=== PATIENT | female | born 1940 | race Caucasian/White ===

== ENCOUNTER → 2016-09-04 | Outpatient (CLI) | payer MEDICARE, BC ==
[~2016-09-04] MED LIST: ASPIRIN 81M81 MG/TA2 PO; BETAPACE 80MG80 MG PO; CARDIZEM CD 12120 MG PO; COUMADIN 5MG5 MG/TAB PO; LASIX 20MG TABL20 MG PO; LOVENOX 8080 MG/0.8 SQ; TYLENOL 325MG325 MG PO
== END ==
LOC: MC.RAD 08:36
DX: Z12.31 Encounter for screening mammogram for malignant neoplasm of breast (principal)

== ENCOUNTER 2017-10-25 08:44 | Emergency (ER) | payer MEDICARE, BC ==
[~2017-10-25] VITALS: Ht 160 cm; Wt 65.9 kg
[~2017-10-25 08:44] MED LIST changes: +BETAPACE 120MG120 MG PO; +FOSAMAX 70MG TA70 MG PO; +ZESTRIL 5MG5 MG PO
[2017-10-25 08:49] VITALS: TEMP 97.3
[2017-10-25 09:34] LABS: BASO # 0.1 (0.0-0.2); BASO % 0.7 % (0.0-2.0); EOS # 0.5 (0.0-0.7); EOS % 6.8 % (0-4.0); GRAN # 4.3 (1.4-6.5); GRAN % 63.2 % (42.2-75.2); HEMATOCRIT 43.2 % (37.0-47.0); HEMOGLOBIN 14.2 g/dl (12.5-16.0); LYMPH # 1.6 (1.2-3.4); LYMPH % 22.9 % (20.0-51.0); MEAN CELL VOLUME 88 fl (80.0-100.0); MEAN CORPUSCULAR HEMOGLOBIN 29 pg (27.0-31.0); MEAN CORPUSCULAR HGB CONC 33 g/dl (33.0-37.0); MEAN PLATELET VOLUME 10.4 fl (7.4-10.4); MONO # 0.4 (0.1-0.6); MONO % 6.3 % (1.7-9.3); PLATELET COUNT 194 K/mm3 (130-400); REDCELL DISTRIBUTION WIDTH-CV 14.3 % (11.5-14.5)
[2017-10-25 09:44] LABS: INR 4.3 (0.8-3.0)
[2017-10-25 09:45] LABS: ALANINE AMINOTRANSFERASE 35 U/L (9-52); ALBUMIN 4.1 gm/dL (3.5-5.0); ALKALINE PHOSPHATASE 69 U/L (50-136); ANION GAP 12 mmol/L (7-16); AST,SGOT 28 U/L (15-37); BILIRUBIN,TOTAL 0.5 mg/dL (0.0-1.0); BLOOD UREA NITROGEN 14 mg/dL (7-17); CALCIUM 9.3 mg/dL (8.4-10.2); CARBON DIOXIDE 26 mmol/L (22-30); CHLORIDE 102 mmol/L (98-107); CREATININE, serum 0.72 mg/dL (0.52-1.25); GLUCOSE 111 mg/dL (74-106); POTASSIUM 3.6 mmol/L (3.4-5.0); SODIUM 140 mmol/L (137-145); TOTAL PROTEIN 7.7 gm/dL (6.4-8.2)
[2017-10-25 09:46] LABS: PROTHROMBIN TIME 48.7 SECONDS (9.7-12.8)
[2017-10-25] MEDS ORDERED: COUMADIN 2MG2 MG/TAB PO (09:48)
[2017-10-25 10:01] LABS: TROPONIN-I < 0.012 ng/mL (0.000-0.034)
[2017-10-25] MEDS ORDERED: COZAAR 25MG25 MG/TAB PO (11:19)
[2017-10-25] MEDS ORDERED: BETAPACE 120MG120 MG PO (11:59)
[2017-10-25 13:06] VITALS: BP 96/58; PULSE 60
== END 2017-10-25 13:13 | disposition other institution (70) ==
LOC: COL.ER 08:44
PROVIDERS: Emergency Medicine
DX: I48.92 Unspecified atrial flutter (principal); R00.0 Tachycardia, unspecified; Z79.82 Long term (current) use of aspirin; Z79.01 Long term (current) use of anticoagulants
CPT/HCPCS: J0153; J2704; J7030

== ENCOUNTER → 2017-10-27 | Outpatient (CLI) | payer MEDICARE, BC ==
[~2017-10-27] MED LIST changes: +COUMADIN 2MG2 MG/TAB PO; +COZAAR 25MG25 MG/TAB PO
== END ==
LOC: MC.RAD 09:34
DX: Z12.31 Encounter for screening mammogram for malignant neoplasm of breast (principal)

== ENCOUNTER 2018-04-14 06:48 | Day surgery (SDC) | payer MEDICARE, BC ==
[~2018-04-14] VITALS: Ht 160.1 cm; Wt 67.3 kg
[2018-04-14 07:25] LABS: HEMATOCRIT 40.4 % (37.0-47.0); HEMOGLOBIN 13.6 g/dl (12.5-16.0); MEAN CELL VOLUME 89 fl (80.0-100.0); MEAN CORPUSCULAR HEMOGLOBIN 30 pg (27.0-31.0); MEAN CORPUSCULAR HGB CONC 34 g/dl (33.0-37.0); MEAN PLATELET VOLUME 9.7 fl (7.4-10.4); PLATELET COUNT 175 K/mm3 (130-400); RED BLOOD COUNT 4.52 M/mm3 (4.10-5.30); REDCELL DISTRIBUTION WIDTH-CV 13.7 % (11.5-14.5)
[2018-04-14 07:30] LABS: INR 2.2 (0.8-3.0); PROTHROMBIN TIME 25.1 SECONDS (9.7-12.8)
[2018-04-14 07:36] LABS: CALCIUM 9.2 mg/dL (8.4-10.2); CREATININE, serum 0.69 mg/dL (0.52-1.25); POTASSIUM 3.8 mmol/L (3.4-5.0)
[2018-04-14 08:01] VITALS: BP 138/85; PULSE 106; TEMP 97.5
[2018-04-14] MEDS ORDERED: TOPROL XL 25MG25 MG PO ×2 (08:12→09:32)
[2018-04-14 09:40] VITALS: BP 99/67; PULSE 80
[2018-04-14 09:50] VITALS: BP 98/66; PULSE 84
[2018-04-14 10:00] VITALS: BP 101/67; PULSE 71
[2018-04-14 10:15] VITALS: BP 92/57; PULSE 69
== END 2018-04-14 10:40 | disposition home or self-care (01) ==
LOC: COL.CAR 06:48
PROVIDERS: Internal Medicine Cardiovascular Disease
DX: I48.0 Paroxysmal atrial fibrillation (principal); I48.92 Unspecified atrial flutter; I50.32 Chronic diastolic (congestive) heart failure; Z95.2 Presence of prosthetic heart valve; Z88.5 Allergy status to narcotic agent; Z88.8 Allergy status to other drugs, medicaments and biological substances; Z90.710 Acquired absence of both cervix and uterus; Z79.01 Long term (current) use of anticoagulants; Z87.11 Personal history of peptic ulcer disease
CPT/HCPCS: J2405; J2704; J7030

== ENCOUNTER 2018-06-01 08:45 | Inpatient (IN) | payer MEDICARE, BC ==
[2018-06-01] VITALS (476 sets, daily range): BP systolic 100–124; BP diastolic 7–87; PULSE 98–110; TEMP 97.9–98.5; O2SAT 82–100
[~2018-06-01] VITALS: Ht 160 cm; Wt 67.0 kg
[~2018-06-01 08:45] MED LIST changes: +TOPROL XL 25MG25 MG PO
--- NOTE | 2018-06-01 09:05 | NUR ---
Patient arrives to ICU room 2 and is attached to monitors. INT IV is started to LW and labs drawn as ordered. RT is called to complete admission EKG. Assessment, vitals and admission as charted. Care assumed.
[2018-06-01 09:32] LABS: CALCIUM 9.5 mg/dL (8.4-10.2); CREATININE, serum 0.77 mg/dL (0.52-1.25); POTASSIUM 4.1 mmol/L (3.4-5.0)
--- NOTE | 2018-06-01 10:22 | NUR ---
First dose of tikosyn administered now. RT notified of need for EKG in 2 hours time.
--- NOTE | 2018-06-01 13:30 | NUR ---
Dr. Rose rounds at this time. Orders as entered CPOE.
[2018-06-01] MEDS ORDERED: LANOXIN 0.25M0.25 MG PO (14:24)
[2018-06-01] MEDS ORDERED: TOPROL XL 25MG25 MG PO (14:26)
--- NOTE | 2018-06-01 14:27 | NUR ---
Plan to return home. SW met with patient, daughter and in room. Patient reports that she is independent in her daily activities. Patient reports that she does not use any DME or O2. Patient reports Dr. Fisher as PCP and the use of [facility] for RX. EMR and DPOA is Ayaka Lindo and Eric Altamirano . Made copies, placed copies in chart and gave family copy. Denies any care concerns. SW will continue to follow if any needs arise. Nothing Follows. .
--- NOTE | 2018-06-01 20:00 | NUR ---
Assessment completed and charted at this time, please see documentation for details. patient resting in bed, no new issues to report at this time.
[2018-06-02] VITALS (469 sets, daily range): BP systolic 100–129; BP diastolic 60–85; PULSE 68–103; TEMP 97.5–98.9; O2SAT 82–100
[2018-06-02 05:49] LABS: CALCIUM 9.1 mg/dL (8.4-10.2); CREATININE, serum 0.7 mg/dL (0.52-1.25); POTASSIUM 4.1 mmol/L (3.4-5.0)
--- NOTE | 2018-06-02 08:41 | NUR ---
Initial visit; Patient doing well, states she is on a prescription trial and thanked Calibration Engineer for looking in on her and wishing her well.
[2018-06-02 09:59] LABS: INR 4.1 (0.8-3.0)
[2018-06-02 10:02] LABS: PROTHROMBIN TIME 47.1 SECONDS (9.7-12.8)
[2018-06-02 10:24] LABS: INR 4.2 (0.8-3.0)
[2018-06-02 10:26] LABS: PROTHROMBIN TIME 47.8 SECONDS (9.7-12.8)
--- NOTE | 2018-06-02 19:19 | NUR ---
Patient up to shower independently, tolerated well. Back to recliner, daughter to bring her supper. Denies any needs. Shift report given to oncoming nurse.
--- NOTE | 2018-06-02 20:30 | NUR ---
Initial shift assessment done- denies pain- denies chest pain/SOB, family in room- visiting with patient. No requests
[2018-06-03 03:57] VITALS: BP 125/68; PULSE 101; TEMP 98
--- NOTE | 2018-06-03 05:38 | NUR ---
Quiet night- no requests, NPO for am cardioversion. Did have a 3 sec run of afib RVR during the night--immediately back to controlled rate
[2018-06-03 06:38] LABS: INR 3.5 (0.8-3.0); PROTHROMBIN TIME 39.7 SECONDS (9.7-12.8)
[2018-06-03 06:49] LABS: CALCIUM 9.3 mg/dL (8.4-10.2); CREATININE, serum 0.77 mg/dL (0.52-1.25); POTASSIUM 4.3 mmol/L (3.4-5.0)
[2018-06-03 07:48] VITALS: BP 123/74; PULSE 101; TEMP 98.1
[2018-06-03 08:03] LABS: BASO # 0.1 (0.0-0.2); BASO % 0.7 % (0.0-2.0); EOS # 0.5 (0.0-0.7); EOS % 7.1 % (0-4.0); GRAN % 58.5 % (42.2-75.2); HEMATOCRIT 39.3 % (37.0-47.0); HEMOGLOBIN 12.9 g/dl (12.5-16.0); LYMPH # 1.7 (1.2-3.4); LYMPH % 24.1 % (20.0-51.0); MEAN CELL VOLUME 90 fl (80.0-100.0); MEAN CORPUSCULAR HEMOGLOBIN 30 pg (27.0-31.0); MEAN CORPUSCULAR HGB CONC 33 g/dl (33.0-37.0); MEAN PLATELET VOLUME 10.3 fl (7.4-10.4); MONO # 0.6 (0.1-0.6); PLATELET COUNT 190 K/mm3 (130-400); RED BLOOD COUNT 4.38 M/mm3 (4.10-5.30); REDCELL DISTRIBUTION WIDTH-CV 13.1 % (11.5-14.5)
--- NOTE | 2018-06-03 08:10 | NUR ---
Pt is A+Ox3, pleasant, denies palpitations and chest pain but c/o slight SOB with exertion. Physical assessment complete. Pt on RA, INt to LFA s complications at site. pt prepared for cardioversion. EKG ordered post tykosin. Bed low, family near, call blake mikki lara
[2018-06-03 10:17] VITALS: BP 120/59; PULSE 86
[2018-06-03] MEDS ORDERED: TIKOSYN0.25 MG PO (10:20)
--- NOTE | 2018-06-03 11:00 | NUR ---
Pt returned to room, states she feels better and SOB improved, no pain. Vitals stable. Continuing to monitor
--- NOTE | 2018-06-03 12:03 | NUR ---
tHIS rn reviewed discharge instructions with pt and family, all questions answered, INT removed with tp intact and site free of complicatons. No further needs, pt is eating sandwithc then will leave
--- NOTE | 2018-06-03 12:15 | NUR ---
[facility]
== END 2018-06-03 12:00 | disposition home or self-care (01) | DRG 309 ==
LOC: ICU 08:45 → MEDICAL 06-02 17:36
PROVIDERS: ADMIT Internal Medicine Cardiovascular Disease
PROC: 5A2204Z Restoration of Cardiac Rhythm, Single (ICD-10-PCS; principal; 2018-06-03)
DX: I48.92 Unspecified atrial flutter (principal); I50.32 Chronic diastolic (congestive) heart failure; I48.0 Paroxysmal atrial fibrillation; Z95.2 Presence of prosthetic heart valve
CPT/HCPCS: G9654; J2405; J2704

== ENCOUNTER 2018-07-21 08:51 | Inpatient (IN) | payer MEDICARE, BC ==
[2018-07-21] VITALS (248 sets, daily range): BP systolic 91–125; BP diastolic 55–69; PULSE 51–84; TEMP 97.9–98.3; O2SAT 84–100
[~2018-07-21] VITALS: Ht 160 cm; Wt 65.9 kg
[~2018-07-21 08:51] MED LIST changes: +LANOXIN 0.25M0.25 MG PO; +TIKOSYN0.25 MG PO
[2018-07-21 09:18] LABS: BASO # 0.1 (0.0-0.2); BASO % 0.6 % (0.0-2.0); EOS # 0.3 (0.0-0.7); EOS % 3.4 % (0-4.0); GRAN # 4.9 (1.4-6.5); GRAN % 60.1 % (42.2-75.2); HEMATOCRIT 43.1 % (37.0-47.0); HEMOGLOBIN 14.2 g/dl (12.5-16.0); LYMPH # 2.4 (1.2-3.4); LYMPH % 28.9 % (20.0-51.0); MEAN CELL VOLUME 89 fl (80.0-100.0); MEAN CORPUSCULAR HEMOGLOBIN 30 pg (27.0-31.0); MEAN CORPUSCULAR HGB CONC 33 g/dl (33.0-37.0); MEAN PLATELET VOLUME 10.5 fl (7.4-10.4); MONO # 0.6 (0.1-0.6); MONO % 6.8 % (1.7-9.3); PLATELET COUNT 222 K/mm3 (130-400); RED BLOOD COUNT 4.82 M/mm3 (4.10-5.30); REDCELL DISTRIBUTION WIDTH-CV 13.2 % (11.5-14.5)
[2018-07-21 09:20] LABS: INR 3.8 (0.8-3.0); PROTHROMBIN TIME 43.5 SECONDS (9.7-12.8)
[2018-07-21 09:23] LABS: PARTIAL THROMBOPLASTIN TIME 55.3 SECONDS (26.0-37.0)
[2018-07-21 09:24] LABS: ALANINE AMINOTRANSFERASE 17 U/L (9-52); ALBUMIN 4.4 gm/dL (3.5-5.0); ALKALINE PHOSPHATASE 70 U/L (50-136); ANION GAP 10 mmol/L (7-16); AST,SGOT 28 U/L (15-37); BILIRUBIN,TOTAL 0.5 mg/dL (0.0-1.0); BLOOD UREA NITROGEN 19 mg/dL (7-17); CALCIUM 9.8 mg/dL (8.4-10.2); CARBON DIOXIDE 27 mmol/L (22-30); CHLORIDE 103 mmol/L (98-107); CREATININE, serum 0.72 mg/dL (0.52-1.25); GLUCOSE 91 mg/dL (74-106); SODIUM 139 mmol/L (137-145)
[2018-07-21 09:39] LABS: TROPONIN-I < 0.012 ng/mL (0.000-0.035)
--- NOTE | 2018-07-21 15:28 | NUR ---
Received report from SUDHA Perez.
--- NOTE | 2018-07-21 15:30 | NUR ---
RECEIVED REPORT FROM SUDHA ADAMSON.
--- NOTE | 2018-07-21 15:45 | NUR ---
PATIENT TRANSFERED FROM ER TO ICU. ASSESSED PATIENT AND GOT PATIENT SETTLED. PATIENT IS RESTING IN ROOM WITH FAMILY. WILL CONTINUE TO MONITOR.
--- NOTE | 2018-07-21 17:53 | NUR ---
PATIENTS HEART RATE REMAINS ANYWHERE BETWEEN 40-90'S. PATIENT STILL REMAINS IN ATRIAL FIBRILLATION. PATIENT IS VISITING WITH FAMILY. CALLED DR. CHOU TO CLARIFY THE AMIODORONE PO THAT WAS DISCONTINUED. PLAN IS TO RATE CONTROL PATIENT WITH PO METOPROLOL THEN SET UP AN APPOINTMENT FOR AN ABLATION NEXT WEEK.
--- NOTE | 2018-07-21 19:13 | NUR ---
GAVE REPORT TO SUDHA HENRY. PATIENT WAS SITTING UP IN BED AND PARTICIPATED IN REPORT.
--- NOTE | 2018-07-21 19:15 | NUR ---
Bedside report received from Sandra HALEY. Pt sitting on side of bed with bluetooth head phone in right ear. Pt alert and active in report at this time. Denies any chest pain or dizziness at this time.
--- NOTE | 2018-07-21 21:00 | NUR ---
Pt assessment complete. Pt is resting in bed at this time although sat at bedside when nurse entered the room. Pt is alert and oriented making wants and needs known to staff. Denies any lightheadedness or pain at this time. Bluetooth headphone is resting on bedside table at this time. Questions were asked via pt regarding new medication regimen at this time. Reviewed which meidcations were being held and which will be continued. Also provided reasoning for Coumadin being held, due to INR results. Pt was agreeable. other questions encouraged and answered.
[2018-07-22] VITALS (149 sets, daily range): BP systolic 104; BP diastolic 69; PULSE 52; O2SAT 92–100
--- NOTE | 2018-07-22 12:34 | NUR ---
Initial visit; Patient thanked Field Education Coordinator for looking in on her and offering prayer and God's blessings.
--- NOTE | 2018-07-23 13:30 | NUR ---
BURAK and SW student met with the patient on 07/22 to discuss discharge plan. [place] of [place] with her . She reports independence and does not use any DME. The patient's PCP is Dr. Luis Fisher and she receives her medications at the [facility]. She reports no difficulties obtaining her meds. The patient does not have advanced directives in EMR, but she states that she does have them completed. The patient discharged back home. No additional needs at this time.
[2018-07-23 14:47] LABS: CALCIUM 9.4 mg/dL (8.4-10.2); CREATININE, serum 0.7 mg/dL (0.52-1.25); POTASSIUM 4.6 mmol/L (3.4-5.0)
[2018-07-23] MEDS ORDERED: TOPROL XL 25MG25 MG PO (15:06)
[2018-07-23 15:28] LABS: BASO % 0.4 % (0.0-2.0); EOS # 0.2 (0.0-0.7); EOS % 2.9 % (0-4.0); GRAN # 5.1 (1.4-6.5); GRAN % 66.1 % (42.2-75.2); HEMATOCRIT 40.2 % (37.0-47.0); HEMOGLOBIN 13.2 g/dl (12.5-16.0); LYMPH # 1.8 (1.2-3.4); LYMPH % 23.6 % (20.0-51.0); MEAN CELL VOLUME 90 fl (80.0-100.0); MEAN CORPUSCULAR HEMOGLOBIN 30 pg (27.0-31.0); MEAN CORPUSCULAR HGB CONC 33 g/dl (33.0-37.0); MEAN PLATELET VOLUME 9.8 fl (7.4-10.4); MONO # 0.5 (0.1-0.6); MONO % 6.6 % (1.7-9.3); PLATELET COUNT 190 K/mm3 (130-400); RED BLOOD COUNT 4.46 M/mm3 (4.10-5.30); REDCELL DISTRIBUTION WIDTH-CV 13.2 % (11.5-14.5)
== END 2018-07-22 11:50 | disposition home or self-care (01) | DRG 309 ==
LOC: COL.ER 08:51 → ICU 11:05
PROVIDERS: Family Medicine
PROC: 5A2204Z Restoration of Cardiac Rhythm, Single (ICD-10-PCS; principal; 2018-07-21)
DX: I48.0 Paroxysmal atrial fibrillation (principal); I50.32 Chronic diastolic (congestive) heart failure; Z95.4 Presence of other heart-valve replacement; Z88.5 Allergy status to narcotic agent; I05.0 Rheumatic mitral stenosis; M81.0 Age-related osteoporosis without current pathological fracture
CPT/HCPCS: J0153; J2250; J2704; J7030

== ENCOUNTER → 2019-03-02 | Outpatient (CLI) | payer MEDICARE, BC | LOC: MC.RAD 12-24 11:45 | DX: Z12.31 Encounter for screening mammogram for malignant neoplasm of breast (principal) ==

== ENCOUNTER → 2020-09-17 | Outpatient (CLI) | payer MEDICARE, BC | LOC: MC.RAD 13:25 | DX: Z12.31 Encounter for screening mammogram for malignant neoplasm of breast (principal); Z98.890 Other specified postprocedural states ==